=== PATIENT | male | born 1985 | race Caucasian/White ===

== ENCOUNTER 2022-09-28 11:31 | Emergency (ER) | payer OTHER, SELFPAY ==
[2022-09-28 11:38] VITALS: BP 129/73; PULSE 78; RESP 16; TEMP 36.6; O2SAT 98; BMI 24.3
--- NOTE | 2022-09-28 11:43 | ED_ITS ---
HPI - General Adult General Chief complaint: Wound/Laceration Stated complaint: electrical shock on left hand Time Seen by Provider: 09/28/22 11:43 Source: patient Mode of arrival: ambulatory Limitations: no limitations History of Present Illness HPI narrative: Patient is a 37 year old assigned male at with no reported medical history presenting to the emergency department today with a left index finger injury. 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 Patient states that his finger continues to hurt today. Patient denies any dizziness, lightheadedness, abdominal pain, nausea, vomiting, fever, chills, blurry vision, double vision, loss of vision, chest pain, difficulty breathing, shortness of breath, back pain, night sweats, pain with urination, increased urinary frequency, increased urinary urgency, blood in his urine or stool, syncope or a near syncopal episode, bowel incontinence, bladder incontinence, bowel retention, bladder retention, or any other complaints at this time. Onset (ago): day(s) (1) Location: left and upper extremity (index finger) Radiation: non-radiation Severity: mild Severity scale (1-10): 3 Relieving factors: none Exacerbating factors: none Associated symptoms: denies other symptoms Treatments prior to arrival: none Related Data Previous Rx's Medication Instructions Recorded cephalexin 500 mg capsule 500 mg PO Q6H 7 days #28 caps 09/28/22 Allergies Allergy/AdvReac Type Severity Reaction Status Date / Time No Known Allergies Allergy Verified 09/28/22 11:38 Review of Systems Constitutional: Constitutional: Reports no additional constitutional complaints, Denies chills, Denies fever(s) and Denies night sweats Eyes: Eyes: Reports no additional eye complaints, Denies blurry vision, Denies change in vision, Denies diplopia, Denies eye discharge, Denies loss of vision and Denies eye pain ENT: Denies dizziness Cardiovascular: Cardiovascular: Reports no additional cardiovascular complaints, Denies chest pain, Denies lightheadedness, Denies Loss of Consciousness and Denies dyspnea Respiratory: Respiratory: Reports no additional respiratory complaints and Denies dyspnea Gastrointestinal: Gastrointestinal: Reports no additional gastrointestinal complaints, Denies abdominal pain, Denies melena, Denies hematochezia, Denies change in bowel habits and Denies change in stool character Genitourinary: Genitourinary: Reports no additional male genitourinary complaints, Denies hematuria, Denies oliguria, Denies difficulty urinating, Denies dysuria, Denies urinary frequency, Denies urinary hesitancy, Denies urinary incontinence and Denies urinary urgency Musculoskeletal: Musculoskeletal: Reports no additional musculoskeletal complaints, Denies numbness and Denies tingling Integumentary/Breasts: Comments: left index finger redness and injury Neurologic: Denies dizziness, Denies loss of vision, Denies numbness and Denies tingling Psychiatric: Psychiatric: Reports no additional psychiatric complaints Endocrine: Endocrine: Reports no additional endocrine complaints Hematologic/Lymphatic: Hematologic/Lymphatic: Reports no additional melinda tologic/lymphatic complaints Allergic/Immunologic: Allergic/Immunologic: Reports no additional allergic/immunologic complaints [facility] Past Medical History Attestation statement: The following information was validated with the patient. Source: old records reviewed and nursing notes reviewed Social History Social History Advance Directives: No Advance Directives Information Provided: No Physical Exam ED Vital Signs: Vital Signs - 24 hr 09/28/22 11:38 Temperature 98 F Pulse Rate 78 Respiratory Rate 16 Blood Pressure 129/73 Pulse Oximetry 98 Oxygen Delivery Method Room Air BMI result Body Mass Index 24.3 Const General: cooperative, no acute distress, alert and awake Nutritional Appearance: well nourished Orientation/consciousness: patient oriented x3 Limitations: no limitations HENMT Head: Yes normal to inspection and Yes atraumatic Ears: hearing grossly normal bilaterally and external ears normal General nose exam: Normal external nose present, no nasal discharge noted and no epistaxis Face and sinus: Yes normal facial exam, No abrasion and No laceration Mouth: Normal oral and palatal mucosa present, no drooling and no muffled voice Eyes General: appearance normal, both eyes and all related structures Periorbital: periorbital findings normal Eyelids: Yes eyelids normal Conjunctivae: conjunctivae normal Pupils: Equal, round and reactive pupils present EOM: EOMs intact bilaterally Neck Neck: Yes normal visual inspection, Yes full ROM and Yes no lymphadenopathy Chest Chest palpation & inspection: normal inspection of the chest Resp Effort & Inspection: normal respiratory effort and able to speak in complete sentences Auscultation: clear to auscultation bilaterally Cardio Rate: regular rate Rhythm: regular rhythm GI Inspection: Yes normal to inspection Neuro General: patient oriented x3 and moves all extremities Cranial nerves: Yes Equal, round and reactive pupils present Cognition (Neuro): normal cognition Motor exam (neuro): 5/5 motor strength present throughout Sensory Exam: Normal double simultaneous stimulation for sensation Coordination: [id number] test normal Extrem Other: left index finger has a small abrasion on the palmar aspect just inferior of the DIP joint with no active bleeding. Patient has full ROM of the finger however, it is painful. Patient's entire left index finger is erythematous along the palmar aspect General: Yes full ROM and Yes capillary refill normal Psych Appearance: grossly normal Mental Status: mental status grossly normal Affect: normal affect Attitude: cooperative Thought process: Normal thought process present Thought content: Normal thought content present Insight: Good insight present (Psych) Medications Administered Discontinued Medications Generic Name Dose Route Start Last Admin Trade Name Freq PRN Reason Stop Dose Admin Diphtheria/Tetanus/Acell Pertussis 0.5 ml 09/28/22 11:40 09/28/22 11:47 Diphth,Pertus(Acell),Tet Adult 0.5 Ml Syringe IM 09/28/22 11:41 0.5 ml .ONCE ONE Administration Medical Decision Making Medical Decision Making [facility] Narrative: Patient is a 37 year old assigned male at with no reported medical history presenting to the emergency department today with a left index finger injury. Patient's physical exam showed a small abrasion to the left index finger and erythema as noted in the physical examination portion of this chart. I explained my physical exam findings to the patient. I answered all questions asked by the patient. Patient's left index finger was thoroughly cleaned and dressed. Patient was brought up to date on his tetanus shot. I stressed the importance of the patient taking his medication as prescribed. I stressed the importance of the patient following up with his primary care provider. I stressed the importance of the patient returning to the emergency department immediately if his symptoms were to worsen or if he were to develop any dizziness, shortness of breath, difficulty breathing, chest pain, blurry vision, loss of vision, nausea, vomiting, abdominal pain, fever, chills, back pain, or any other complaints. Patient verbalized agreement and understanding with this treatment plan and discharge. Differential Diagnosis Differential Diagnoses: The differential diagnosis associated with the presentation includes electrical burn, flash burn Discharge Plan Discharge Clinical Impression: Burn Patient Disposition: Home, Self-Care Instructions: Electrical Nelson in Adults (ED) Additional Instructions: Follow up with your primary care provider and a hand specialist. Return to the emergency department immediately if your symptoms worsen or if you develop any dizziness, shortness of breath, difficulty breathing, chest pain, blurry vision, loss of vision, nausea, vomiting, abdominal pain, fever, chills, back pain, or any other complaints. Prescriptions: New cephalexin 500 mg capsule 500 mg PO Q6H 7 Days Qty: 28 0RF Referrals: [facility] Family Medicine [Provider Group] (Call to establish and follow up with a primary care provider. If you already have a primary care provider, please follow up with them.) [facility] [Provider Group] (Call to establish and follow up with a primary care provider. If you already have a primary care provider, please follow up with them.) [facility] Primary Care,[facility] [Provider Group] (Call to establish and follow up with a primary care provider. If you already have a primary care provider, please follow up with them.) [facility] Orth[facility] Surgeons [Provider Group] (Call to establish and follow up with a hand specialist. ) Stand Alone Forms: Work/School Release Discharge Date/Time: 09/28/22 12:05
[2022-09-28] MEDS: Diphth,Pertus(ACell),Tet Adult 0.5 ML SYRINGE IM (11:47)
== END 2022-09-28 12:05 | disposition home or self-care (01) ==
LOC: HO.ED 11:58
PROVIDERS: Emergency Provider Student in an Organized Health Care Education/Training Program
DX: S69.92XA Unspecified injury of left wrist, hand and finger(s), initial encounter (principal); S60.512A Abrasion of left hand, initial encounter; W86.8XXA Exposure to other electric current, initial encounter; Y93.9 Activity, unspecified; Y92.9 Unspecified place or not applicable; Y99.9 Unspecified external cause status; Z23 Encounter for immunization
CPT/HCPCS: 90471; 90715; 99281; 99284

== ENCOUNTER → 2023-09-24 11:47 | Outpatient (BNVA) | payer OTHER, SELFPAY | PROVIDERS: Visit Provider Physician Assistant Medical | DX: Z09 Encounter for follow-up examination after completed treatment for conditions other than malignant neoplasm (principal); S93.491A Sprain of other ligament of right ankle, initial encounter; X50.1XXA Overexertion from prolonged static or awkward postures, initial encounter | CPT/HCPCS: 73600; 73630; 99203 ==

== ENCOUNTER 2023-10-04 13:02 | Outpatient (AMB) | payer OTHER, SELFPAY ==
--- NOTE | 2023-10-04 13:06 | A.OFFVIS_ITS ---
Intake Vital Signs 10/04/23 13:10 Height 5 ft 9 in Weight 190 lb BMI 28.1 Intake Visit Reasons: FC- RT Ankle/ Foot Inj Intake Note: is a 38 year old male who presents today for a fracture care visit s/p Right ankle injury on 09/19/23. Patient reports while at work his foot got stuck between two pallets causing him to twist the ankle and fall. He has pain, swelling, numbness and tingling. He was given naproxen for his pain. He was given a tall walking boot and crutches, but patient has been WBAT. Allergies No Known Allergies Allergy (Verified 10/04/23 13:12) Medication List - Last Reconciled 10/12/23 by Martin Burr PA-C cephalexin 500 mg PO Q6H 7 days naproxen 500 mg PO BID PRN HPI FC- RT Ankle/ Foot Inj HPI Details 38-year-old male who presents to the [facility] today for evaluation of right ankle pain s/p foot getting stuck between two pallets causing him to twist his ankle and fall, 09/19/22. He currently states he has pain, swelling, numbness and tingling in his ankle. He was seen at fracture clinic where he was given tall walking boot, crutches and naproxen. He is taking naproxen for his pain as instructed. 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 Review of Systems Const All systems reviewed & are unremarkable except as noted in HPI and below Physical Exam Vital Signs: BMI result Body Mass Index 28.1 Const General: cooperative and no acute distress Orientation/consciousness: patient oriented x3 Resp Effort & Inspection: normal respiratory effort and able to speak in complete sentences Cardio Peripheral pulses: Peripheral pulses 2+ throughout Neuro General: patient oriented x3 Extrem Other: Right foot: Skin is intact. He has diffuse swelling throughout the foot and ankle. No open wound or abrasions. He has significant tenderness over the dorsum of the foot. No pain over the medial and lateral malleolus. Good pulses and sensation throughout. Results Reviewed Results Reviewed: xrays of the left foot and ankle obtained on 09/24/23 IMPRESSION: 1. Bimalleolar soft tissue swelling. No visible acute fracture or dislocation seen. 2. Unremarkable right foot exam. Assessment & Plan Assessment & Plan (1) Right foot sprain: Code(s): S93.601A - Unspecified sprain of right foot, initial encounter Qualifiers: Encounter type: initial encounter Qualified Code(s): S93.601A - Unspecified sprain of right foot, initial encounter (2) Crush injury of right foot: Code(s): S97.81XA - Crushing injury of right foot, initial encounter Qualifiers: Encounter type: initial encounter Qualified Code(s): S97.81XA - Crushing injury of right foot, initial encounter Plan He will continue with his boot. I recommend that he remains toe touch weight bearing or non-weight bearing if tolerable. An MRI of the right foot has been ordered to further evaluate the ligamentous structures. An order for physical therapy was also placed to work on gentle ROM and swelling control. He will remain out of work till I see him back to discuss the results. Orders: Orders PT Evaluation and Treatment 10/04/23 S93.601A - Unspecified sprain of right foot, initial encounter, S97.81XA - Crushing injury of right foot, initial encounter MR foot RT wo con 10/04/23 S97.81XA - Crushing injury of right foot, initial encounter, S93.601A - Unspecified sprain of right foot, initial encounter Patient Instructions: Scribed for Martin Burr PA-C, by Jass Rahman medical referral coordinator, on 10/04/2023 at 1:15 PM EST. IMartin PA-C, have personally reviewed and agree with the information entered by the scribe. Coding Level of Care Code New Pt Level 3 (11284) Diagnoses Sprain of right foot, initial encounter S93.601A Encounter type: initial encounter Crushing injury of right foot, initial encounter S97.81XA Encounter type: initial encounter
[2023-10-04 13:10] VITALS: BMI 28.1
== END 2023-10-04 13:36 | disposition home or self-care (01) ==
PROVIDERS: Visit Provider Physician Assistant
DX: S93.601A Unspecified sprain of right foot, initial encounter (principal); S97.81XA Crushing injury of right foot, initial encounter; Z04.2 Encounter for examination and observation following work accident
CPT/HCPCS: 99203

== ENCOUNTER → 2023-10-04 13:02 | Outpatient (BNVA) | payer OTHER, SELFPAY | PROVIDERS: Visit Provider Physician Assistant | DX: S93.601A Unspecified sprain of right foot, initial encounter (principal); S97.81XA Crushing injury of right foot, initial encounter | CPT/HCPCS: 99202 ==

== ENCOUNTER → 2023-10-08 15:55 | Outpatient (BNVA) | payer OTHER, SELFPAY | PROVIDERS: Visit Provider Physician Assistant Medical | DX: S93.491D Sprain of other ligament of right ankle, subsequent encounter (principal); X50.1XXD Overexertion from prolonged static or awkward postures, subsequent encounter | CPT/HCPCS: 99213 ==

== ENCOUNTER 2023-10-17 09:51 | Outpatient (RCR) | payer OTHER, SELFPAY ==
--- NOTE | 2023-10-17 16:58 | MHC.PT.EP ---
[facility] [place] Office [place] Office [place] Office [address] [phone] F: [phone] F: [phone] F: [phone] F: [phone] Physical Therapy Plan of Care Date of Evaluation: 10/17/23 Date of Surgery: Diagnosis: R foot sprain *crush injury R foot. 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 Pt is deemed an appropriate candidate to receive skilled PT services to address their physical impairments in order to improve their functional ability. Frequency and Duration: The patient will be seen 2 x/ wk x 6 wks. Short Term Goals: initiate home program. R ankle ROM WNL achieved. Usp Goals: I with home program. Improved LEFI outcome measure by at least 9 points. Pt will be able to walk 2 blocks with at most a little bit of difficulty. Pt will be able to ascend and descend 1 fl of stairs with reciprocal gait. Treatment Plan: Modalities to reduce pain, spasms and effusion. Manual therapy to restore motion and function. Therapeutic exercise to improve strength and flexibility. Neuromuscular re-education for posture and balance. Therapeutic activities to return to functional activities of daily living. Electronically signed by: Eleuterio Welch PT. Please sign and return to therapist. Thank you for your referral.
--- NOTE | 2024-01-14 16:04 | MHC.PT.DC ---
[facility] [place] Office [place] Office [place] Office [address] Edmund Hendricks [address] [facility] [phone] F: [phone] F: [phone] F: [phone] F: [phone] Physical Therapy Discharge Report Diagnosis: R foot sprain *crush injury R foot. Date of Surgery: Date of Evaluation: 10/17/23 Date of Discharge: 01/14/24 Treatments to Date: 1 Cancellations to Date: 1 No Shows to Date: 4 Discharge Status: Visit Non-compliance Discharge Summary: Electronically signed by: Eleuterio Welch PT. Please sign and return to therapist. Thank you for your referral.
== END 2024-01-14 16:03 | disposition home or self-care (01) ==
LOC: HO.PT 09:51
PROVIDERS: Visit Provider Physician Assistant
DX: S93.601D Unspecified sprain of right foot, subsequent encounter (principal); S97.81XD Crushing injury of right foot, subsequent encounter
CPT/HCPCS: 97110; 97161

== ENCOUNTER → 2023-10-17 11:54 | Outpatient (BNVA) | payer OTHER, SELFPAY | PROVIDERS: Visit Provider Physician Assistant Medical | DX: S93.491D Sprain of other ligament of right ankle, subsequent encounter (principal); X50.1XXD Overexertion from prolonged static or awkward postures, subsequent encounter | CPT/HCPCS: 99213 ==

== ENCOUNTER 2023-11-05 18:55 | Outpatient (REF) | payer OTHER, SELFPAY ==
--- NOTE | ~2023-11-05 | MR_ITS ---
EXAMINATION: MR FOOT WITHOUT CONTRAST, RIGHT CLINICAL INFORMATION: Right foot crush injury. Pain. COMPARISON: Right foot and ankle radiographs dated 09/24/2023. TECHNIQUE: Multisequence MR imaging of the right foot was obtained without contrast on a high-field strength scanner. FINDINGS: BONE: Nondisplaced, oblique fractures through the plantar base of the third and fourth metatarsals with prominent adjacent marrow edema. The fracture lines appear to contact the tarsometatarsal articular surfaces without significant cortical step-off. Additional edema with areas of heterogeneously low T1 signal at the plantar aspect of the first and second metatarsals, likely indicating additional nondisplaced fractures and contacting the tarsometatarsal articular surfaces. Marrow edema with mild cortical irregularity along the dorsal aspect of the middle cuneiform, likely representing a nondisplaced cortical fracture. Bone detail limited on MR examination. Mild marrow edema within the second metatarsal head which could represent a stress reaction or osseous contusion. More minimal edema within the third and fourth metatarsal heads. No distal metatarsal fracture line. Articular cartilage thinning with small marginal osteophytes at the talonavicular joint. No concerning lytic or blastic osseous lesion. MUSCLES/TENDONS: The visualized flexor and extensor tendons are intact. No transverse tendon tear or tendon retraction. LIGAMENTS: Mild edema adjacent to the Lisfranc ligament which could represent a grade 1 sprain/partial tear. No complete ligament tear or Lisfranc joint space widening. SOFT TISSUES: Soft tissue edema surrounding the base of the metatarsals. No forefoot neuroma. Small amount of fluid interposed between the first and second metatarsal heads which could represent mild adventitial bursitis. MR/MR foot RT wo con IMPRESSION: 1. Nondisplaced, oblique fractures through the plantar base of the third and fourth metatarsals contacting the tarsometatarsal articular surfaces. Additional nondisplaced fractures at the plantar aspect of the first and second metatarsals as well as at the dorsal aspect of the medial cuneiform. Bone detail limited on MR examination and if there is need to further characterize fractures, CT could more clearly delineate. 2. Mild marrow edema within the second metatarsal head which could represent a stress reaction or osseous contusion. More minimal marrow edema within the third and fourth metatarsal heads. No distal metatarsal fracture line. 3. Possible grade 1 sprain/partial tear of the Lisfranc ligament. No complete ligament tear or Lisfranc joint space widening. 4. Small amount of fluid interposed between the first and second metatarsal heads which could represent mild adventitial bursitis.
== END 2023-11-05 18:56 | disposition home or self-care (01) ==
LOC: HO.MRI 18:55
PROVIDERS: Visit Provider Physician Assistant
DX: S97.81XA Crushing injury of right foot, initial encounter (principal); S93.601A Unspecified sprain of right foot, initial encounter
CPT/HCPCS: 73718

== ENCOUNTER 2023-11-20 12:31 | Outpatient (REF) | payer OTHER, SELFPAY ==
--- NOTE | ~2023-11-20 | XR_ITS ---
EXAMINATION: XR FOOT, RIGHT CLINICAL INFORMATION: Metatarsal bone fractures. COMPARISON: Portions of the MRI dated 11/05/2023; radiographs dated 09/24/2023. TECHNIQUE: AP, lateral, and oblique views of the right foot. FINDINGS: There is stable near-anatomic alignment of previously noted third and fourth metatarsal base fractures. A nondisplaced fracture is now appreciated of the posterior malleolus, with adjacent periosteal thickening, best seen on the lateral view. No significant right ankle joint effusion is seen. Boehler's angle is normal. There is a small posterior calcaneal spur. No focal soft tissue swelling, gas or foreign body is seen. XR/XR foot RT min 3V IMPRESSION: 1. A stable near-anatomic alignment of right third and fourth metatarsal base fractures. 2. A nondisplaced fractures now appreciated of the posterior malleolus of the right ankle. 3. There is a small posterior calcaneal spur. A preliminary report was provided by the [facility] on 11/27/2023.
== END 2023-11-20 12:32 | disposition home or self-care (01) ==
LOC: HO.HOSX 12:31
PROVIDERS: Visit Provider Physician Assistant
DX: S92.351A Displaced fracture of fifth metatarsal bone, right foot, initial encounter for closed fracture (principal); S93.601A Unspecified sprain of right foot, initial encounter
CPT/HCPCS: 73630; 99212

== ENCOUNTER 2023-11-20 12:31 | Outpatient (AMB) | payer OTHER, SELFPAY ==
[2023-11-20 12:33] VITALS: BMI 28.1
--- NOTE | 2023-11-20 12:33 | A.OFFVIS_ITS ---
Intake Vital Signs 11/20/23 12:33 Height 5 ft 9 in Weight 190 lb BMI 28.1 Intake Visit Reasons: ov-RT Ankle Mri review Intake Note: a 38 year old male who presents today for an MRI review s/p right ankle injury on 09/19/23. Allergies No Known Allergies Allergy (Verified 11/20/23 12:34) HPI ov-RT Ankle Mri review HPI Details 38-year-old male who returns to the [facility] today for an MRI review of right ankle s/p injury, 09/19/23. He states he is doing well however he does experience pain with weight bearing. He has no other concerns. Review of Systems Const All systems reviewed & are unremarkable except as noted in HPI and below Physical Exam Vital Signs: BMI result Body Mass Index 28.1 Extrem Other: Right foot: Normal to inspection. Mild tenderness over the Lisfranc ligament and also along the base of the 1st and 2nd metatarsal. No significant swelling or bruising. NVI. Results Reviewed Results Reviewed: MR foot RT wo con IMPRESSION: 1. Nondisplaced, oblique fractures through the plantar base of the third and fourth metatarsals contacting the tarsometatarsal articular surfaces. Additional nondisplaced fractures at the plantar aspect of the first and second metatarsals as well as at the dorsal aspect of the medial cuneiform. Bone detail limited on MR examination and if there is need to further characterize fractures, CT could more clearly delineate. 2. Mild marrow edema within the second metatarsal head which could represent a stress reaction or osseous contusion. More minimal marrow edema within the third and fourth metatarsal heads. No distal metatarsal fracture line. 3. Possible grade 1 sprain/partial tear of the Lisfranc ligament. No complete ligament tear or Lisfranc joint space widening. 4. Small amount of fluid interposed between the first and second metatarsal heads which could represent mild adventitial bursitis. Assessment & Plan Assessment & Plan (1) Right foot sprain: Code(s): S93.601A - Unspecified sprain of right foot, initial encounter Qualifiers: Encounter type: initial encounter Qualified Code(s): S93.601A - Unspecified sprain of right foot, initial encounter (2) Crush injury of right foot: Code(s): S97.81XA - Crushing injury of right foot, initial encounter Qualifiers: Encounter type: initial encounter Qualified Code(s): S97.81XA - Crushing injury of right foot, initial encounter (3) Metatarsal fracture: Code(s): S92.309A - Fracture of unspecified metatarsal bone(s), unspecified foot, initial encounter for closed fracture (4) Lisfranc's sprain: Code(s): S93.629A - Sprain of tarsometatarsal ligament of unspecified foot, initial encounter Plan He would like to return to work and I think this is fine however he should avoid prolonged standing and he should not perform any lifting, pushing, pulling, or carrying and avoid impact activities. He should be working maximum 4 hours a day unless he does solely sedentary work only. He will return in 4-6 weeks with new x-rays, sooner if needed. Orders: Orders XR foot RT min 3V Today S92.351A - Displaced fracture of fifth metatarsal bone, right foot, initial encounter for closed fracture Patient Instructions: Scribed for Martin Burr PA-C, by Jass Rahman medical record librarians teacher, on 11/20/2023 at 12:30 PM EST. IMartin PA-C, have personally reviewed and agree with the information entered by the scribe. Coding Level of Care Code Global (84174) Diagnoses Sprain of right foot, initial encounter S93.601A Encounter type: initial encounter Crushing injury of right foot, initial encounter S97.81XA Encounter type: initial encounter Metatarsal fracture S92.309A Lisfranc's sprain S93.629A
== END 2023-11-20 13:28 | disposition home or self-care (01) ==
PROVIDERS: Visit Provider Physician Assistant
DX: S93.601A Unspecified sprain of right foot, initial encounter (principal); S97.81XA Crushing injury of right foot, initial encounter; S92.309A Fracture of unspecified metatarsal bone(s), unspecified foot, initial encounter for closed fracture; S93.629A Sprain of tarsometatarsal ligament of unspecified foot, initial encounter
CPT/HCPCS: 99213

== ENCOUNTER 2024-01-01 12:47 | Outpatient (AMB) | payer OTHER, SELFPAY ==
--- NOTE | 2024-01-01 13:00 | A.OFFVIS_ITS ---
Vital Signs 01/01/24 13:06 Height 5 ft 9 in Weight 190 lb BMI 28.1 Intake Visit Reasons: ov-RT Ankle INJ Intake Note: a 38 year old male who presents today for a follow up of right ankle 09/19/23. Patient reports he continues to have discomfort with prolong standing, stating with putting his foot flat on the ground his pain increases. Allergies No Known Allergies Allergy (Verified 01/01/24 13:03) HPI HPI ov-RT Ankle INJ: Details: 38-year-old male who returns to the office today for a follow-up of right foot fracture, 09/19/23. He continues to have discomfort that is aggravated with prolonged standing due to weight bearing his foot on the ground. He has no other concerns today. Review of Systems Const All systems reviewed & are unremarkable except as noted in HPI and below Physical Exam Vital Signs: BMI result Body Mass Index 28.1 Extrem Other: Right foot: Normal to inspection. Mild tenderness over the Lisfranc ligament and also along the base of the 1st and 2nd metatarsal. No significant swelling or bruising. NVI. Assessment & Plan Assessment & Plan (1) Right foot sprain: Code(s): S93.601A - Unspecified sprain of right foot, initial encounter Category: Medical Qualifiers: Encounter type: initial encounter Qualified Code(s): S93.601A - Unspecified sprain of right foot, initial encounter (2) Crush injury of right foot: Code(s): S97.81XA - Crushing injury of right foot, initial encounter Category: Medical Qualifiers: Encounter type: initial encounter Qualified Code(s): S97.81XA - Crushing injury of right foot, initial encounter (3) Metatarsal fracture: Code(s): S92.309A - Fracture of unspecified metatarsal bone(s), unspecified foot, initial encounter for closed fracture Category: Medical (4) Lisfranc's sprain: Code(s): S93.629A - Sprain of tarsometatarsal ligament of unspecified foot, initial encounter Category: Medical Plan He will begin a course of physical therapy. I stressed the importance of working on therapy to regain his strength and mobility. He was placed in a lace-up ankle brace. He will return full duty in 4 weeks and contact if he has any questions or concerns. Orders: Orders XR foot RT min 3V 01/01/24 S92.351A - Displaced fracture of fifth metatarsal bone, right foot, initial encounter for closed fracture Patient Instructions: Scribed for Martin Burr PA-C, by Jass Rahman rn medical inpatient services, on 01/01/2024 at 12:45 PM EST.? I, Martin Burr PA-C, have personally reviewed and agree with the information entered by the scribe. Coding Level of Care Code Global (99961) Diagnoses Sprain of right foot, initial encounter S93.601A Encounter type: initial encounter Crushing injury of right foot, initial encounter S97.81XA Encounter type: initial encounter Metatarsal fracture S92.309A Lisfranc's sprain S93.629A
[2024-01-01 13:06] VITALS: BMI 28.1
== END 2024-01-01 13:50 | disposition home or self-care (01) ==
PROVIDERS: Visit Provider Physician Assistant
DX: S97.81XA Crushing injury of right foot, initial encounter (principal); S92.309A Fracture of unspecified metatarsal bone(s), unspecified foot, initial encounter for closed fracture; S93.629A Sprain of tarsometatarsal ligament of unspecified foot, initial encounter; Z04.2 Encounter for examination and observation following work accident
CPT/HCPCS: 99213

== ENCOUNTER 2024-01-01 12:57 | Outpatient (REF) | payer OTHER, SELFPAY ==
--- NOTE | ~2024-01-01 | XR_ITS ---
EXAMINATION: XR FOOT, RIGHT CLINICAL INFORMATION: Displaced fracture fifth metatarsal bone right foot. COMPARISON: 11/20/2023, 09/24/2023 x-rays right foot. MRI 11/20/2023. TECHNIQUE: AP, lateral, and oblique views of the right foot. FINDINGS: Near anatomic alignment of previously identified fractures at the bases of the third and fourth metatarsals. Previously identified nondisplaced fracture of the posterior malleolus with adjacent periosteal reaction, best seen on the lateral view, redemonstrated. Small posterior calcaneal spur. XR/XR foot RT min 3V IMPRESSION: 1. Near anatomic alignment of previously identified fractures at the bases of the third and fourth metatarsals. 2. Previously identified nondisplaced fracture of the posterior malleolus with adjacent periosteal reaction, best seen on the lateral view, redemonstrated.
== END 2024-01-01 12:58 | disposition home or self-care (01) ==
LOC: HO.HOSX 12:57
PROVIDERS: Visit Provider Physician Assistant
DX: S92.351D Displaced fracture of fifth metatarsal bone, right foot, subsequent encounter for fracture with routine healing (principal); S93.601D Unspecified sprain of right foot, subsequent encounter
CPT/HCPCS: 73630; 99212